=== PATIENT | male | born 1985 | race Caucasian/White ===

== ENCOUNTER 2017-04-30 21:10 | Emergency (ER) | payer OTHER ==
--- NOTE | ~2017-04-30 | EKG ---
PATIENT: HUGO MUIR UNIT #: [id number] Ventricular Rate: 65 BPM Atrial Rate: 65 BPM P-R Interval: 130 ms QRS Duration: 98 ms Q-T Interval: 428 ms QTC Calculation(Bezet): 445 ms P [place]: 19 degrees Calculated R [place]: -20 degrees Calculated T [place]: 28 degrees Diagnosis Line: Normal sinus rhythm Diagnosis Line: Low voltage QRS Diagnosis Line: Incomplete right bundle branch block Diagnosis Line: Borderline ECG Diagnosis Line: When compared with ECG of 17-AUG-2013 13:16, Diagnosis Line: Incomplete right bundle branch block is now Diagnosis Line: Present Diagnosis Line: Confirmed by YARITZA PINON MD ([id number]) on Diagnosis Line: 05/01/2017 1:39:10 PM INTERPRETING MD: ZI GASTON
--- NOTE | ~2017-04-30 | CR72 ---
[facility]. [facility] A Service of [facility] & [facility] RADIOLOGY TEXT RESULTS PATIENT: HUGO MUIR LOCATION: SED : 89 UNIT #: [id number] AGE: [address]: Albertina Sawant MD SEX: M ORDER DR: [id number] [place] [address] [id number] MR#: [id number] Acc #: [id number] NAME: HUGO MUIR : 1985 SEX: M STUDY DATE/TIME: 04/30/2017 21:49 UNIT: SED ROOM: STUDY DESCRIPTION: CR Chest Single View Portable Attending Physician: Albertina Sawant M.D. Ordering Physician: Albertina Sawant M.D. Primary Care Physician: Primary Care Physician No MEDICAL IMAGING REPORT This report is preliminary unless electronic signature is present. EXAM Portable chest HISTORY Atrial fib x1 week, chest pain. COMPARISON 04/07/2012 FINDINGS A single AP portable view of the chest shows both lungs to be clear. The heart is normal in size. The mediastinal contour is normal. No significant bone abnormalities are seen. IMPRESSION Normal portable chest. Dictated by... Christina Bermeo M.D. THIS IS AN ELECTRONICALLY VERIFIED REPORT Christina Bermeo M.D. at 05/01/2017 7:05 PM GRIFFIN/oswalod TD: 05/01/2017 04:56 JOB #: [id number] MEDICAL IMAGING REPORT Page 1 of 1
[~2017-04-30 21:10] MED LIST: ASPIRIN81 MG PO; IBUPROFEN PO; KETOPROFEN PO; KLONOPIN PO; KLONOPIN2 MG PO; LEXAPRO PO; LOPRESSOR PO; ORUDIS75 M1 PO; SEROQUEL PO; TEGRETOL PO; WELLBUTRIN100 MG PO
[2017-04-30 21:54] LABS: POC - CKMB 1.4 ng/mL (0.0-7.9); POC - TROPONIN <0.05 ng/mL (<=0.05)
[2017-04-30 21:58] LABS: BASOPHIL% 0.3 % (0-2.5); DIFF IND NO; EOSINOPHIL# 0.1 X10e3 (0-0.7); EOSINOPHIL% 0.7 % (0.0-7.0); HEMATOCRIT 45.8 % (38.0-50.0); HEMOGLOBIN 15.4 gm/dL (13.0-16.0); LYMPHOCYTE# 2.3 X10e3 (1.0-3.5); LYMPHOCYTE% 20.8 % (17.0-45.0); MEAN CELL VOLUME 88.2 FL (83-96); MEAN CORPUSCULAR HEMOGLOBIN 29.6 PG (28-34); MEAN CORPUSCULAR HGB CONC 33.6 g/dL (30-36); MEAN PLATELET VOLUME 9.4 FL (6.5-11.5); MONOCYTE% 9.1 % (3.0-12.0); NEUTROPHIL# 7.8 X10e3 (1.5-7.1); NEUTROPHIL% 69.1 % (40-75); PLATELET COUNT 228 X10e3 (140-420); RED BLOOD COUNT 5.19 X10e (3.90-5.60); RED CELL DISTRIBUTION WIDTH 13.7 % (11.0-15.5); WHITE BLOOD COUNT 11.3 X10e3 (4.0-10.5)
[2017-04-30 21:59] LABS: INR 1.1; PROTHROMBIN TIME (PATIENT) 12.8 SECONDS (9.5-12.4)
[2017-04-30 22:06] LABS: PARTIAL THROMBOPLASTIN TIME 31.2 SECONDS (25.6-38.1)
[2017-04-30 22:08] LABS: ALBUMIN SERUM 4.8 g/dL (3.5-5.0); BILIRUBIN, DIRECT 0.2 mg/dL (0.0-0.2); BILIRUBIN,INDIRECT 0.6 mg/dL (0.0-0.9); BILIRUBIN,TOTAL 0.8 mg/dL (0.2-2.0); BUN/CREATININE RATIO 15.55; CALCIUM SERUM 9.3 mg/dL (8.4-10.2); CREATININE SERUM 0.9 mg/dL (0.6-1.4); POTASSIUM 3.3 mmol/L (3.5-5.1); PROTEIN TOTAL SERUM 8.2 g/dL (6.0-8.3)
[2017-04-30 23:14] LABS: POC - CKMB <1.0 ng/mL (0.0-7.9); POC - TROPONIN <0.05 ng/mL (<=0.05)
== END 2017-05-01 00:27 | disposition home or self-care (01) ==
LOC: SED 21:10
PROVIDERS: Emergency Medicine
DX: R07.89 Other chest pain (principal); F41.9 Anxiety disorder, unspecified; I48.91 Unspecified atrial fibrillation; Z79.899 Other long term (current) drug therapy; Z79.82 Long term (current) use of aspirin
CPT/HCPCS: 36415; 71010; 80048; 80076; 82553; 84484; 85025; 85379; 85610; 85730; 93005; 96374; 96375; 99285; J2270; J2405